=== PATIENT | male | born 1955 | race Caucasian/White ===

== ENCOUNTER 2016-08-30 19:06 | Emergency (ER) | payer MEDICAID, MEDICARE ==
[~2016-08-30] VITALS: Ht 188 cm; Wt 103.5 kg
[~2016-08-30 19:06] MED LIST: ATOR80TA41 PO; ECOT81TA2 PO; FURO1TAB93 PO; HYDR-3129 PO; LEVO.025 PO; LISI10 PO; LORA0.5T PO; METO25 PO; OXYC10TA8 PO; SPIR25 PO
[2016-08-30 19:10] VITALS: BP 119/78; PULSE 62; RESP 18; TEMP 98.1; O2SAT 100
[2016-08-30] MEDS ORDERED: SODIUM CHLOR 0.9% 1000 ML INJ 1,000 ML IV SCH (19:30)
[2016-08-30] MEDS ORDERED: PANTOPRAZOLE SODIUM 40 MG VIAL IV PUSH ONE (19:30)
[2016-08-30] MEDS ORDERED: HYDROmorphone HCL PF 1 MG/ML VIAL IV PUSH ONE ×2 (19:30→21:00)
[2016-08-30] MEDS ORDERED: ONDANSETRON HCL 4 MG/2 ML VIAL IV PUSH ONE (19:30)
--- NOTE | 2016-08-30 19:31 | PD ---
HPI Chief Complaint: GI Complaint Time Seen by Provider: 19:16 Travel History International Travel<30 days: No Contact w/Intl Traveler<30days: No Traveled to known affect area: No History of Present Illness HPI This 61-year-old male is complaining of abdominal pain. He says he been having abdominal pain for 3 days. The pain is across the midabdomen little more so on the right side. In fairly constant. He has had some loose stools because he took a laxative thinking it might be constipation. He has not had fever or chills. He does drink alcohol. He says the last time he drank was about a week ago. He has not had any abdominal surgery. He does have quite severe congestive heart failure with ejection fraction 15%. He has a AICD implanted [facility] Past Medical History Cancer: No Cardiomyopathy: Yes Cardiovascular Problems: Yes (CHF/DEFIBULATOR) Diminished Hearing: Yes Endocrine: No Genitourinary: No Immune Disorder: No Musculoskeletal: No Neurologic: No Psychiatric: No Reproductive: No Respiratory: Yes (COPD) Past Surgical History AICD: Yes Cardiac Surgery: Yes (aicd inserted july 2015) Social History Alcohol Use: Yes Tobacco Use: Yes Substance Use: Yes (marijuana) Allergies-Medications (Allergen,Severity, Reaction): Coded Allergies: No Known Allergies (Unverified , 08/30/16) Reported Meds & Prescriptions Reported Meds & Active Scripts Active Reported Levothyroxine (Levothyroxine Sodium) 25 Mcg Tab 12.5 Mcg PO DAILY Metoprolol Tartrate 25 Mg Tab 25 Mg PO HS Metoprolol Tartrate 50 Mg Tab 50 Mg PO DAILY Lasix (Furosemide) 40 Mg Tab 40 Mg PO DAILY Spironolactone 25 Mg Tab 25 Mg PO DAILY Lisinopril 10 Mg Tab 10 Mg PO DAILY Aspirin Low Dose (Aspirin) 81 Mg Chew 81 Mg CHEW HS Review of Systems General / Constitutional: No: Fever, Chills Eyes: No: Diploplia, Blurred Vision HENT: No: Headaches, Vertigo Cardiovascular: No: Chest Pain or Discomfort, Palpitations Respiratory: No: Shortness of Breath, Wheezing Gastrointestinal: Positive: Nausea, Diarrhea, Abdominal Pain, No: Constipation , Loss of Appetite Genitourinary: No: Urgency, Frequency Skin: No Rash Neurologic: No: Weakness Physical Exam Narrative GENERAL: Well-developed male SKIN: Focused skin assessment warm/dry. HEAD: Atraumatic. Normocephalic. EYES: Pupils equal and round. No scleral icterus. No injection or drainage. ENT: No nasal bleeding or discharge. Mucous membranes pink and moist. NECK: Trachea midline. No JVD. CARDIOVASCULAR: Regular rate and rhythm. No murmur appreciated. RESPIRATORY: No accessory muscle use. Clear to auscultation. Breath sounds equal bilaterally. GASTROINTESTINAL: Abdomen soft, there is epigastric tenderness. There is no guarding, nondistended. Hepatic and splenic margins not palpable. MUSCULOSKELETAL: No obvious deformities. No clubbing. No cyanosis. No edema. NEUROLOGICAL: Awake and alert. No obvious cranial nerve deficits. Motor grossly within normal limits. Normal speech. PSYCHIATRIC: Appropriate mood and affect; insight and judgment normal. Data Data Last Documented VS Vital Signs Date Time Temp Pulse Resp B/P Pulse Ox O2 Delivery O2 Flow Rate FiO2 08/30/16 19:10 98.1 62 18 119/78 100 Orders Complete Blood Count With Diff (08/30/16 19:26) Comprehensive Metabolic Panel (08/30/16 19:26) B-Type Natriuretic Peptide (08/30/16 19:26) Lipase (08/30/16 19:26) Urinalysis - C+S If Indicated (08/30/16 19:26) Chest, Single Ap (08/30/16 19:26) Ct Abd/Pel W Iv Contrast(Rout) (08/30/16 19:26) Sodium Chlor 0.9% 1000 Ml Inj (Ns 1000 M (08/30/16 19:30) Ondansetron Inj (Zofran Inj) (08/30/16 19:30) Hydromorphone Pf Inj (Dilaudid Pf Inj) (08/30/16 19:30) Pantoprazole Inj (Protonix Inj) (08/30/16 19:30) Iohexol 350 Inj (Omnipaque 350 Inj) (08/30/16 20:49) Labs Laboratory Tests Test 08/30/16 08/30/16 19:35 19:50 White Blood Count 9.0 TH/MM3 Red Blood Count 4.85 MIL/MM3 Hemoglobin 16.0 GM/DL Hematocrit 46.7 % Mean Corpuscular Volume 96.1 FL Mean Corpuscular Hemoglobin 33.0 PG Mean Corpuscular Hemoglobin 34.3 % Concent Red Cell Distribution Width 12.1 % Platelet Count 330 TH/MM3 Mean Platelet Volume 8.6 FL Neutrophils (%) (Auto) 66.2 % Lymphocytes (%) (Auto) 25.1 % Monocytes (%) (Auto) 6.5 % Eosinophils (%) (Auto) 1.2 % Basophils (%) (Auto) 1.0 % Neutrophils # (Auto) 5.9 TH/MM3 Lymphocytes # (Auto) 2.3 TH/MM3 Monocytes # (Auto) 0.6 TH/MM3 Eosinophils # (Auto) 0.1 TH/MM3 Basophils # (Auto) 0.1 TH/MM3 CBC Comment AUTO DIFF Sodium Level 138 MEQ/L Potassium Level 3.9 MEQ/L Chloride Level 102 MEQ/L Carbon Dioxide Level 25.9 MEQ/L Anion Gap 10 MEQ/L Blood Urea Nitrogen 16 MG/DL Creatinine 0.94 MG/DL Estimat Glomerular Filtration 82 ML/MIN Rate Random Glucose 123 MG/DL Calcium Level 9.4 MG/DL Total Bilirubin 0.2 MG/DL Aspartate Amino Transf 17 U/L (AST/SGOT) Alanine Aminotransferase 22 U/L (ALT/SGPT) Alkaline Phosphatase 93 U/L B-Type Natriuretic Peptide 36 PG/ML Total Protein 8.1 GM/DL Albumin 3.8 GM/DL Lipase 437 U/L Urine Color YELLOW Urine Turbidity CLEAR Urine pH 8.0 Urine Specific [place] 1.016 Urine Protein NEG mg/dL Urine Glucose (UA) NEG mg/dL Urine Ketones NEG mg/dL Urine Occult Blood NEG Urine Nitrite NEG Urine Bilirubin NEG Urine Leukocyte Esterase NEG Urine RBC 0-3 /hpf Microscopic Urinalysis Comment CULT NOT INDICATED MDM Medical Decision Making Medical Screen Exam Complete: Yes Emergency Medical Condition: Yes Medical Record Reviewed: Yes Differential Diagnosis Differential includes pancreatitis, ulcer disease, Narrative Course Lipase is slightly elevated at 437. His white count is normal. Liver function tests are normal. A CT scan of the abdomen and pelvis was obtained. It is thought to be consistent with mild acute head pancreatitis. No other complications or abnormalities are noted. Patient has been given IV fluids and Dilaudid with some improvement of his pain Diagnosis Primary Impression: Pancreatitis Qualified Code: K85.90 - Acute pancreatitis without infection or necrosis, unspecified pancreatitis type Scripts Omeprazole (Prilosec)20 Mg Cap20 Mg PO DAILY #30 CAP Ref 0 Prov:Anselmo Person MD 08/30/16 Oxycodone-Acetaminophen (Percocet)10-325 mg Tab1 Tab PO Q4H PRN (PAIN) #30 TAB Ref 0 Prov:Anselmo Person MD 08/30/16 Disposition: 01 DISCHARGE HOME Condition: Stable Anselmo Person MD August 30, 2016 19:31
[2016-08-30 19:47] LABS: AUTOMATED NEUTROPHIL # 5.9 TH/MM3 (1.8-7.7); BASOPHIL # 0.1 TH/MM3 (0-0.2); EOSINOPHIL # 0.1 TH/MM3 (0-0.4); EOSINOPHIL % 1.2 % (0.0-4.0); HEMATOCRIT 46.7 % (39.0-51.0); LYMPH % 25.1 % (9.0-44.0); LYMPHOCYTE # 2.3 TH/MM3 (1.0-4.8); MEAN CELL VOLUME 96.1 FL (80.0-100.0); MEAN CORPUSCULAR HGB CONC 34.3 % (32.0-36.0); MONO % 6.5 % (0.0-8.0); NEUT % 66.2 % (16.0-70.0); PLATELET COUNT 330 TH/MM3 (150-450); RED BLOOD COUNT 4.85 MIL/MM3 (4.50-5.90); RED CELL DISTRIBUTION WIDTH 12.1 % (11.6-17.2)
[2016-08-30] MEDS ORDERED: FURO1TAB60 PO (19:50)
[2016-08-30] MEDS ORDERED: LEVO25TA4 PO (19:50)
[2016-08-30] MEDS ORDERED: SPIR25TA PO (19:50)
[2016-08-30] MEDS ORDERED: ASPI81CH37 CHEW (19:50)
[2016-08-30] MEDS ORDERED: LISI10TA3 PO (19:50)
[2016-08-30] MEDS ORDERED: METO50TA PO (19:50)
[2016-08-30] MEDS ORDERED: METO25TA3 PO (19:50)
[2016-08-30 19:57] LABS: CHLORIDE 102 MEQ/L (98-107); HEMO FLAGS AUTO DIFF; POTASSIUM 3.9 MEQ/L (3.5-5.1); SODIUM (NA) 138 MEQ/L (136-145)
--- NOTE | 2016-08-30 19:57 | RADHPO ---
EXAM DATE/TIME: 08/30/2016 19:50 [facility] COMPARISON: CHEST SINGLE AP, August 16, 2015, 9:46. INDICATIONS : Cough. MEDICAL HISTORY : Congestive heart failure. Pneumonia SURGICAL HISTORY : Pacemaker. ENCOUNTER: Initial ACUITY: 1 day PAIN SCORE: 9/10 LOCATION: Bilateral chest FINDINGS: Minimal bibasilar atelectasis. No evidence of failure. Heart size stable, upper limits of normal to m ildly enlarged. Patient has a pacer/defibrillator. No large effusion. No pneumothorax. CONCLUSION: Trace bibasilar atelectasis and mild compensated cardiomegaly. Buck Bower MD on August 30, 2016 at 19:54 Board Certified Radiologist. This report was verified electronically.
[2016-08-30 20:01] LABS: ANION GAP 10 MEQ/L (5-15); BICARBONATE 25.9 MEQ/L (21.0-32.0); BLOOD UREA NITROGEN 16 MG/DL (7-18)
[2016-08-30 20:04] LABS: ALT (GPT) 22 U/L (12-78); AST (GOT) 17 U/L (15-37); GLOMERULAR FILTRATION RATE 82 ML/MIN (>89)
[2016-08-30 20:06] LABS: TOTAL BILIRUBIN ADULT 0.2 MG/DL (0.2-1.0)
[2016-08-30 20:07] LABS: ALKALINE PHOSPHATASE 93 U/L (45-117)
[2016-08-30 20:17] LABS: BLOOD, URINE NEG (NEG); GLUCOSE,URINE NEG (NEG); KETONE, URINE NEG (NEG); NITRITE,URINE NEG (NEG)
[2016-08-30 20:21] LABS: URINE COLOR YELLOW (YELLW/STRAW)
[2016-08-30 20:22] LABS: COMMENT (UR) CULT NOT INDICATED; CULTURE IF INDICATED CULT NOT INDICATED; RBC, URINE 0-3 /hpf (0-3)
[2016-08-30] MEDS ORDERED: IOHEXOL 350 MG/ML 10 ML VIAL (for RAD DIAG) IV ONE (20:49)
--- NOTE | 2016-08-30 20:51 | RADHPO ---
EXAM DATE/TIME: 08/30/2016 20:27 [facility] COMPARISON: CT ABDOMEN & PELVIS W CONTRAST, August 27, 2015, 2:25. INDICATIONS : Upper abdominal pain and back pain x 4 days. IV CONTRAST: 96 cc Omnipaque 350 (iohexol) IV ORAL CONTRAST: No oral contrast ingested. RADIATION DOSE: 16.78 CTDIvol (mGy) MEDICAL HISTORY : Pancreatitis. Congestive heart failure. Chronic obstructive pulmonary disease. SURGICAL HISTORY : None. ENCOUNTER: Initial ACUITY: 4 - 6 days PAIN SCALE: 9/10 LOCATION: Bilateral upper quadrant TECHNIQUE: Volumetric scanning of the abdomen and pelvis was performed. Using automated exposure control and ad justment of the mA and/or kV according to patient size, radiation dose was kept as low as reasonably achievable to obtain optimal diagnostic quality images. FINDINGS: LOWER LUNGS: The visualized lower lungs are clear. LIVER: Homogeneous density without lesion. There is no dilation of the biliary tree. No calcified gallston es. SPLEEN: Normal size without lesion. PANCREAS: Mildly indistinct margins of the pancreatic head and uncinate process. No ductal dilatation. Parenchy ma enhances normally. KIDNEYS: Normal in size and shape. There is no solid mass, stone or hydronephrosis. Subcentimeter cyst left l ower pole. ADRENAL GLANDS: Within normal limits. VASCULAR: Atherosclerosis again seen of the abdominal aorta BOWEL/MESENTERY: The stomach, small bowel, and colon demonstrate no acute abnormality. There is no free intraperitone al air or fluid. ABDOMINAL WALL: Within normal limits. RETROPERITONEUM: There is no lymphadenopathy. BLADDER: No wall thickening or mass. REPRODUCTIVE: Within normal limits. INGUINAL: There is no lymphadenopathy or hernia. MUSCULOSKELETAL: Within normal limits for patient age. CONCLUSION: 1. CT would support very mild acute head pancreatitis in the proper clinical setting. No acute compli cation. 2. No other acute abnormality demonstrated. Buck Bower MD on August 30, 2016 at 20:46 Board Certified Radiologist. This report was verified electronically.
[2016-08-30] MEDS ORDERED: PRIL20CA9 PO (20:59)
[2016-08-30] MEDS ORDERED: PERC10TA27 PO (20:59)
[2016-08-30 21:02] LABS: SCAN/DIFF AUTO DIFF CONFIRMED
[2016-08-30 21:10] VITALS: BP 103/55; PULSE 61; RESP 18; O2SAT 98
[2016-08-30 21:50] VITALS: BP 102/65; PULSE 63; RESP 18; O2SAT 98
[2016-08-30 22:10] VITALS: RESP 18
== END 2016-08-30 22:23 | disposition home or self-care (01) ==
LOC: PHED 19:06
DX: K85.90 Acute pancreatitis without necrosis or infection, unspecified (principal); I50.9 Heart failure, unspecified; Z72.0 Tobacco use
CPT/HCPCS: 71010; 74177; 80053; 81001; 83690; 83880; 85025; 96361; 96374; 96375; 96376; 99284; C9113; J1170; J2405; J7030; Q9967